=== PATIENT | male | born 1980 | race Asian ===

== ENCOUNTER 2022-05-25 07:11 | Outpatient (CLI) | payer BC | END 2022-05-25 07:12 | disposition home or self-care (01) | LOC: BICULT 07:11 | PROVIDERS: ATTEND Family Medicine | DX: R74.8 Abnormal levels of other serum enzymes (principal); K76.0 Fatty (change of) liver, not elsewhere classified; K82.8 Other specified diseases of gallbladder | CPT/HCPCS: 76705 ==